=== PATIENT | female | born 1965 | race Caucasian/White ===

== ENCOUNTER 2017-12-22 13:56 | Emergency (ER) | payer OTHER ==
[~2017-12-22] VITALS: Ht 167.6 cm; Wt 75.3 kg
[2017-12-22 13:59] VITALS: BP 139/72
--- NOTE | 2017-12-22 14:00 | NUR ---
52Y/F BIB [facility] C/O 01/10 LOW BACK PAIN RADIATING DOWN TO LEGS AND TO LOWER ABD X 3 DAYS. DENIES INJURY. BED DOWN; BEDRAIL UP X 1; ER MD AWARE AND NOTIFIED OF PT STATUS. HX: BACK PAIN RX: DENIES
--- NOTE | 2017-12-22 14:30 | NUR ---
Patient being evaluated by physician at bedside.
[2017-12-22] MEDS ORDERED: KETOROLAC 60 MG/2 ML VIAL IM ONE (14:35)
[2017-12-22 16:21] VITALS: BP 137/70
== END 2017-12-22 16:21 | disposition home or self-care (01) ==
LOC: MED 13:56
DX: M54.5 Low back pain (principal)
CPT/HCPCS: 81002; 81025; 96372; 99283; J1885